=== PATIENT | female | born 1980 | race African-American/Black ===

== ENCOUNTER 2021-05-13 13:38 | Outpatient (CLI) | payer OTHER, SELFPAY ==
--- NOTE | 2021-05-13 | ECHO_ITS ---
Patient Info Name: Carlos Issa Age: 40 years : 1980 Gender: Female Ht: 66 in Wt: 466 lbs BSA: 3.29 m2 HR: 90 bpm BP: 114 / 85 mmHg Technical Quality: Fair Exam Date: 05/13/2021 2:32 PM Exam Location: [facility] Patient Status: Outpatient Admit Date: 05/13/2021 Staff Ordering Physician: LuisDona APRN Shear Operator Helper: Jeni Pedroza RDCS Attending Provider: MagdalenaDona APRN Exam Type: CA echo doppler color flow Study Info Indications - PULM HTN Complete two-dimensional, color flow and Doppler transthoracic echocardiogram is performed. Summary 1. Complete two-dimensional, color flow and Doppler transthoracic echocardiogram is performed. 2. Left ventricular chamber dimension is normal. 3. Left ventricular systolic function is normal, estimated at 60-65%. 4. There is mildly increased left ventricular wall thickness. 5. The left ventricular diastolic function is grade I diastolic dysfunction. 6. E/e' 7 is not elevated. 7. There is trace tricuspid valve regurgitation. 8. No pulmonary hypertension, estimated pulmonary arterial systolic pressure is 23 mmHg. Left Ventricle E/e' 7 is not elevated. Left ventricular chamber dimension is normal. Left ventricular systolic function is normal, estimated at 60-65%. There is mildly increased left ventricular wall thickness. The left ventricular diastolic function is grade I diastolic dysfunction. Right Ventricle Right ventricular systolic function is normal and with normal TAPSE 2.5 cm. Right ventricular chamber dimension is normal. Left Atria Left atrial chamber dimension is normal. Right Atria Right atrial chamber dimension is normal. Aortic Valve The aortic valve is trileaflet. There is no aortic valve stenosis. There is no aortic valve regurgitation. Pulmonic Valve There is no pulmonic regurgitation. Mitral Valve There is no mitral valve stenosis. There is no mitral valve regurgitation. Tricuspid Valve There is trace tricuspid valve regurgitation. No pulmonary hypertension, estimated pulmonary arterial systolic pressure is 23 mmHg. Pericardium/Pleural There is no pericardial effusion. Inferior Vena Cava Normal inferior vena cava with >50% collapse upon inspiration consistent with normal right atrial pressure, 5 mmHg. Aorta The aortic root size at the sinus of Valsalva is normal. Left Ventricular Outflow Tract Name Value Normal LVOT 2D LVOT Diameter 2.1 cm LVOT Doppler LVOT Peak Gradient 5 mmHg LVOT Mean Gradient 4 mmHg LVOT VTI 21 cm LVOT VTI/AV VTI Ratio 0.7 LVOT Stroke Volume 73 ml LVOT CO 19.3 l/min LVOT CI 5.9 l/min/m2 Pulmonic Valve Name Value Normal PV Doppler
== END 2021-05-13 13:39 | disposition home or self-care (01) ==
PROVIDERS: Visit Provider Nurse Practitioner Gerontology
DX: I27.20 Pulmonary hypertension, unspecified (principal)
CPT/HCPCS: 93306